=== PATIENT | female | born 1965 | race Caucasian/White ===

== ENCOUNTER 2022-11-24 11:02 | Outpatient (CLI) | payer BC, SELFPAY ==
--- NOTE | ~2022-11-24 | MR_ITS ---
EXAMINATION: MR knee RT wo con DATE: 11/24/2022 11:30 INDICATION: Chronic right knee pain TECHNIQUE: Magnetic resonance imaging (MRI) of the right knee was performed without intravenous contr ast. Sequences included coronal PD-weighted FSE, coronal PD-weighted FS FSE, sagittal T2-weighted FS E, sagittal PD-weighted FS FSE and axial PD weighted fat saturated FSE. COMPARISON: None. FINDINGS: Medial compartment: Medial meniscus is normal. Region of deep chondral ulceration measuring 16 mm AP and 8 mm medial adia ateral at the anterior weightbearing medial femoral condyle. Delamination along the deep cartilage ex tending a few millimeter peripherally from the region of chondral ulceration. Lateral compartment: There is a longitudinal vertical tear in the peripheral third of the anterior horn and anterior body of the lateral meniscus situated along the cephalad margin of a marginal osteophyte along the lateral tibial plateau. Additional irregular increased signal extending more centrally towards the free edge of the anterior horn suggesting complex tear at this location. Deep chondral ulceration extending 1. 5 cm AP and 4 mm medial collateral at the central weightbearing lateral femoral condyle. Shallow bienvenido dral ulceration with chondral surface regularity along the anterior weightbearing lateral femoral con dyle. Mild partial-thickness cartilage loss with smooth chondral surface along the medial side of the lateral tibial plateau. Patellofemoral compartment: Extensive deep chondral ulceration with underlying cortical irregularity and mild subarticular edema- like and cystlike changes at the lateral and inferior aspect of the lateral trochlea as well as the j uxtaposed lateral patellar facet and patellar apical ridge. Remodeling of the articular cortex at the lateral patellar facet. Cartilage thickness more preserved but with deep chondral fissuring at the m edial patellar facet, medial trochlea and trochlear groove. Ligaments and tendons: Anterior and posterior cruciate ligaments are normal. The medial collateral ligament and fibular adia ateral ligament complex are normal. The extensor mechanism is normal. The visualized medial and later al hamstring tendons as well as the iliotibial band are normal. Fluid: Visualized amount fluid in the right knee joint space. There is some synovitis at the lateral gutter of the suprapatellar pouch. Additional fluid and synovitis extending caudally along the popliteal rec ess. No loose osteochondral bodies identified. Osseous/other: 5 mm lateral patellar subluxation. No fracture or pathologic marrow replacing process. IMPRESSION: 1. Tear of the anterior horn and anterior body of the lateral meniscus appears complex at the anterio r horn. 2. 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 Reviewed, dictated and finalized at location L. [facility] RETENTION REPRESENTATIVE IMPRESSION: 1. Tear of the anterior horn and anterior body of the lateral meniscus appears complex at the anterior horn. 2. Tricompartmental osteoarthritis, severe with extensive high-grade correlatio n the lateral side the patellofemoral compartment and mild with moderate grade chondromalacia in the medial and lateral compartments.
== END 2022-11-24 11:03 ==
DX: M17.11 Unilateral primary osteoarthritis, right knee (principal); M25.561 Pain in right knee; G89.29 Other chronic pain; S83.271A Complex tear of lateral meniscus, current injury, right knee, initial encounter; M94.261 Chondromalacia, right knee
CPT/HCPCS: 73721